=== PATIENT | male | born 1970 | race Caucasian/White ===

== ENCOUNTER → 2018-02-06 | Outpatient (CLI) | payer BC ==
[~2018-02-06] MED LIST: CLARITIN10 MG PO; HYDROCHLOROTHIA25 M1 PO; OMEPRAZOLE20 M2 PO; ZESTRIL,PRINIVIL5 MG PO; ZOCOR20 MG PO
--- NOTE | ~2018-02-06 | EKG ---
[place], [place] ELECTROCARDIOGRAM REPORT NAME: DENYS VELASCO UNIT #: [id number] ROOM: DOCTOR: EPIPHANY DRAFT REPORT BIRTHDATE: [birth year] [facility] Test Date: 2018-02-06 Test Time: 17:22:41 Pat Name: DENYS VELASCO Department: Room: Gender: Client Resolution Specialist: : 1970 Requested By: EMMY WANG Order Number: [id number] Reading MD: Measurements Intervals [place] Rate: 88 P: 51 OK: 147 QRS: 12 QRSD: 105 T: 154 QT: 408 QTc: 494 Interpretive Statements Sinus rhythm Ventricular bigeminy LVH with secondary repolarization abnormality Borderline prolonged QT interval No previous ECG available for comparison CM:EKGRPT:ELECTROCARDIOGRAM REPORT 1722 1423 EMMY WANG EPIPHANY DRAFT REPORT EMMY WANG
== END | disposition home or self-care (01) ==
LOC: RAD 17:09
DX: R05 Cough (principal); R03.0 Elevated blood-pressure reading, without diagnosis of hypertension

== ENCOUNTER → 2018-03-20 | Outpatient (CLI) | payer BC ==
--- NOTE | ~2018-03-20 | ST ---
[place], [place] EXERCISE STRESS TEST REPORT NAME: DENYS VELASCO UNIT #: [id number] ROOM: DOCTOR: JULIANA CHO MD BIRTHDATE: [birth year] DOS: 03/20/2018 LEXISCAN PORTION OF THE LEXISCAN CARDIOLITE The patient walked on the Walt protocol, duration of 5 minutes 30 seconds. Heart rate is 149, which is 85% of predicted heart rate ____ completion of the protocol, the patient was hypertensive to start with, and became significantly hypertensive, had very frequent PVCs and bigeminy also. No chest pain. No chest discomfort. Blood pressure is severely hypertensive. FINAL IMPRESSION: Hypertensive blood pressure response. No chest discomfort. The patient does have some mild ST depression in the inferior and lateral leads probably to left ventricular hypertrophy. Isolated PVCs. Nuclear images will be reported separately. JULIANA CHO MD CM:STRESS:EXERCISE STRESS TEST REPORT [id number] JULIANA CHO MD
== END | disposition home or self-care (01) ==
LOC: CARD 02:56
DX: R94.31 Abnormal electrocardiogram [ECG] [EKG] (principal)

== ENCOUNTER → 2018-06-22 | Outpatient (CLI) | payer BC | END | disposition home or self-care (01) | LOC: ORTHO 02:59 | DX: M25.512 Pain in left shoulder (principal); R20.2 Paresthesia of skin ==

== ENCOUNTER → 2019-09-27 | Outpatient (CLI) | payer BC ==
[~2019-09-27] MED LIST changes: +COREG6.25 MG PO; +FISH OIL 1,0001 EAC4 PO; +MOBIC7.5 MG PO; +TRICOR48 MG PO
== END | disposition home or self-care (01) ==
LOC: COVID19 01:11
DX: Z01.818 Encounter for other preprocedural examination (principal); Z11.59 Encounter for screening for other viral diseases

== ENCOUNTER → 2019-10-03 | Day surgery (SDC) | payer BC ==
[~2019-10-03] VITALS: Ht 187.9 cm; Wt 138.3 kg
[2019-10-03 08:15] VITALS: BP 158/80
[2019-10-03 09:05] VITALS: BP 143/89
[2019-10-03 09:20] VITALS: BP 142/82
[2019-10-03 09:35] VITALS: BP 153/86
== END | disposition home or self-care (01) ==
LOC: SDC 09-30 10:15
DX: K62.5 Hemorrhage of anus and rectum (principal); K63.5 Polyp of colon; K57.30 Diverticulosis of large intestine without perforation or abscess without bleeding; I10 Essential (primary) hypertension; K21.9 Gastro-esophageal reflux disease without esophagitis; Z83.3 Family history of diabetes mellitus; Z82.49 Family history of ischemic heart disease and other diseases of the circulatory system; Z98.890 Other specified postprocedural states; Z79.899 Other long term (current) drug therapy

== ENCOUNTER → 2020-04-22 | Outpatient (CLI) | payer BC | END | disposition home or self-care (01) | LOC: RAD 14:42 | PROVIDERS: ATTEND Nurse Practitioner Family | DX: M25.562 Pain in left knee (principal) ==

== ENCOUNTER → 2021-11-03 | Outpatient (CLI) | payer BC ==
[2021-11-03 09:43] LABS: BUN 15 mg/dl (7-24); CHLORIDE 106 mmol/L (98-107); CREATININE 1.26 mg/dL (0.70-1.30); POTASSIUM 3.8 mmol/L (3.5-5.1); SODIUM 141 mmol/L (136-145)
== END | disposition home or self-care (01) ==
LOC: LAB 09:09 → CT 13:00
PROVIDERS: ATTEND Nurse Practitioner Family
DX: K42.9 Umbilical hernia without obstruction or gangrene (principal); K43.9 Ventral hernia without obstruction or gangrene; K57.30 Diverticulosis of large intestine without perforation or abscess without bleeding

== ENCOUNTER → 2022-08-11 | Day surgery (SDC) | payer BC ==
[~2022-08-11] VITALS: Ht 187.9 cm; Wt 136.1 kg
[2022-08-11] VITALS (7 sets, daily range): BP systolic 120–152; BP diastolic 70–89
[~2022-08-11] MED LIST changes: +COLACE100 MG PO; +HYDROCODONE-AC1 EAC1 PO; +LOSARTAN POTASS50 M1 PO; +ONDANSETRON HYDR4 M1 PO
== END | disposition home or self-care (01) ==
LOC: SDC 08-08 13:15
PROVIDERS: ATTEND Surgery
DX: K43.6 Other and unspecified ventral hernia with obstruction, without gangrene (principal); K42.9 Umbilical hernia without obstruction or gangrene; I10 Essential (primary) hypertension; K21.9 Gastro-esophageal reflux disease without esophagitis; E78.00 Pure hypercholesterolemia, unspecified